=== PATIENT | male | born 1995 | race Caucasian/White ===

== ENCOUNTER 2020-04-29 11:39 | Outpatient (REF) | payer MEDICAID, SELFPAY | END 2020-04-29 11:40 | disposition home or self-care (01) | LOC: HO.LAB 11:39 | PROVIDERS: Visit Provider Internal Medicine | DX: Z20.822 Contact with and (suspected) exposure to COVID-19 (principal) | CPT/HCPCS: 36415; C9803; U0003; U0005 ==

== ENCOUNTER 2021-12-16 20:35 | Emergency (ER) | payer MEDICAID, SELFPAY ==
[2021-12-16 20:42] VITALS: BP 133/84; PULSE 84; RESP 18; TEMP 36.1; O2SAT 97; BMI 34.8
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
--- NOTE | 2021-12-17 00:02 | PC.NURSE ---
Patient was not in the exam room when MD went to evaluate patient. Unsure when they left.
== END 2021-12-17 00:02 | disposition left against medical advice (07) ==
PROVIDERS: Emergency Provider Internal Medicine
DX: M54.50 Low back pain, unspecified (principal); M54.2 Cervicalgia
CPT/HCPCS: 99281